=== PATIENT | male | born 1965 | race African-American/Black ===

== ENCOUNTER 2019-06-28 05:36 | Emergency (ER) | payer OTHER ==
[2019-06-28 05:40] VITALS: BP 168/114; PULSE 93
--- NOTE | 2019-06-28 06:26 | EDM.PDOC ---
ED HPI GENERAL MEDICAL PROBLEM - General Chief Complaint: Respiratory Problem Stated Complaint: CHEST PAIN Time Seen by Provider: 06/28/19 05:47 - History of Present Illness INITIAL COMMENTS - FREE TEXT/NARRATIVE: HPI 53-year-old morbidly obese male smoker with HTN and DM presents with poorly characterized new onset intermittent shortness of breath that appears to occur at rest and was without identifiable provoking or relieving factors. Recently flew to the area from [place]. No fevers or chills. M/S/F/SocHx notable for: please see HPI; remainder reviewed with patient and in chart. ROS: Negative constitutional, eye, cardiovascular, pulmonary, GI, , MSK, skin , neurologic, psychiatric, endocrine unless noted in the HPI. Exam Gen: Pleasant, non-toxic appearing, resting comfortably. HEENT: NC, AT, PEERL, EOMI. Resp: scattered faint expiratory wheezing, otherwise clear to auscultation bilaterally, normal work of breathing, no accessory muscle usage. Card: Regular rate and rhythm with no murmurs, rubs, or gallops, extremities warm and well perfused. GI: Non-tender to palpation throughout all quadrants, no focal tenderness at McBurney's point, negative Bronw's sign, non-distended, no rebound or guarding. : No suprapubic tenderness to palpation. MSK: No visible deformities, strength and tone without visually appreciable deficit. Skin: Normal color with no visible lesions. Neuro: alert and oriented 3, no facial asymmetry, vision and hearing WNL. Psych: Mood and affect appropriate. Labs / Imaging: EKG: SR 87 bpm, no ST segment elevations or depressions, no LBBB. No CO segment depressions. CXR: pending. BMP, CBC, d-dimer, troponin pending. MDM Previous chart, nursing note, labs, imaging, and vitals reviewed. A: 53-year-old morbidly obese male smoker with HTN and DM presents with poorly characterized new onset intermittent shortness of breath that appears to occur at rest and was without identifiable provoking or relieving factors. DDx: ACS, pericarditis, myocarditis, unstable angina, PE, CHF, reactive airway disease exacerbation, pneumonia, pleural effusion, pericardial effusion. Evaluation: patient without clear evidence of congestive heart failure or reactive airway disease exacerbation on exam. ECG without clear evidence of ischemia, pericarditis, myocarditis. Chest x-ray, laboratory studies, and repeat evaluation pending at time of patient care transferred to Dr. Moreno, the oncoming daytime physician. Impression: shortness of breath. - Related Data Allergies Allergy/AdvReac Type Severity Reaction Status Date / Time No Known Allergies Allergy Verified 06/28/19 05:37 Home Meds: Home Meds Cabergoline 0.5 mg PO DAILY 06/28/19 [History] Losartan/Hydrochlorothiazide [Losartan-HCTZ 50-12.5 MG] 1 each PO DAILY [History] atorvaSTATin [Lipitor] 20 mg PO DAILY 06/28/19 [History] metFORMIN HCl [Metformin HCl] 1,000 mg PO BIDMEALS 06/28/19 [History] Past Medical History HEENT History: Reports: None Cardiovascular History: Reports: High Cholesterol, Hypertension Respiratory History: Reports: None Gastrointestinal History: Reports: None Genitourinary History: Reports: None Neurological History: Reports: None Psychiatric History: Reports: None Endocrine/Metabolic History: Reports: Diabetes, Type II Hematologic History: Reports: None Immunologic History: Reports: None Oncologic (Cancer) History: Reports: None Dermatologic History: Reports: None - Infectious Disease History Infectious Disease History: Reports: Chicken Pox - Past Surgical History Other Musculoskeletal Surgeries/Procedures:: left elbow surgery Social & Family History - Family History Family Medical History: Noncontributory - Tobacco Use Smoking Status *Q: Current Every Day Smoker Years of Tobacco use: 20 Packs/Tins Daily: 1 - Recreational Drug Use Recreational Drug Use: No ED ROS GENERAL - Review of Systems Review Of Systems: See Below ED EXAM, GENERAL - Physical Exam Exam: See Below Course - Vital Signs Last Recorded V/S: Last Vital Signs Temp 36.1 C 06/28/19 05:38 Pulse 93 06/28/19 05:38 Resp 18 06/28/19 05:38 BP 168/114 H 06/28/19 05:38 Pulse Ox 92 L 06/28/19 05:38 - Orders/Labs/Meds Orders: Active Orders 24 hr Category Date Time Status EKG 12 Lead [EKG Documentation Completion] [RC] STAT Care 06/28/19 06:00 Active CXR [Chest 2V] [CR] Stat Exams 06/28/19 05:53 Ordered BMP [BASIC METABOLIC PANEL,BMP] [CHEM] Stat Lab 06/28/19 05:53 Ordered D Dimer [D-DIMER QUANTITATIVE] [COAG] Stat Lab 06/28/19 05:53 Ordered TROPONIN I [CHEM] Stat Lab 06/28/19 05:53 Ordered Labs: Laboratory Tests 06/28/19 Range/Units 06:11 WBC 10.57 (4.0-11.0) K/uL RBC 4.97 (4.50-5.90) M/uL Hgb 13.7 (13.0-17.0) g/dL Hct 42.9 (38.0-50.0) % MCV 86.3 (80.0-98.0) fL MCH 27.6 (27.0-32.0) pg MCHC 31.9 (31.0-37.0) g/dL RDW Std Deviation 49.0 (28.0-62.0) fl RDW Coeff of Radha 16 H (11.0-15.0) % Plt Count 259 (150-400) K/uL MPV 10.50 (7.40-12.00) fL Neut % (Auto) 64.1 (48.0-80.0) % Lymph % (Auto) 26.1 (16.0-40.0) % Kleberg % (Auto) 8.5 (0.0-15.0) % Eos % (Auto) 1.0 (0.0-7.0) % Baso % (Auto) 0.3 (0.0-1.5) % Neut # (Auto) 6.8 H (1.4-5.7) K/uL Lymph # (Auto) 2.8 H (0.6-2.4) K/uL Kleberg # (Auto) 0.9 H (0.0-0.8) K/uL Eos # (Auto) 0.1 (0.0-0.7) K/uL Baso # (Auto) 0.0 (0.0-0.1) K/uL Nucleated RBC % 0.0 /100WBC Nucleated RBCs # 0 K/uL Departure - Departure Time of Disposition: 06:25 Disposition: Still A Patient 30 Clinical Impression: Shortness of breath - Discharge Information Sepsis Event Note - Evaluation Sepsis Screening Result: No Definite Risk - Focused Exam Vital Signs: Vital Signs Temp Pulse Resp BP Pulse Ox 06/28/19 05:38 36.1 C 93 18 168/114 H 92 L Date Exam was Performed: 06/28/19 Time Exam was Performed: 06:25 - My Orders Last 24 Hours: My Active Orders 06/28/19 05:53 CXR [Chest 2V] [CR] Stat BMP [BASIC METABOLIC PANEL,BMP] [CHEM] Stat D Dimer [D-DIMER QUANTITATIVE] [COAG] Stat TROPONIN I [CHEM] Stat 06/28/19 06:00 EKG 12 Lead [EKG Documentation Completion] [RC] STAT - Assessment/Plan Last 24 Hours: My Active Orders 06/28/19 05:53 CXR [Chest 2V] [CR] Stat BMP [BASIC METABOLIC PANEL,BMP] [CHEM] Stat D Dimer [D-DIMER QUANTITATIVE] [COAG] Stat TROPONIN I [CHEM] Stat 06/28/19 06:00 EKG 12 Lead [EKG Documentation Completion] [RC] STAT
[2019-06-28 06:50] LABS: BLOOD UREA NITROGEN,BUN 15 mg/dL (7.0-18.0); CHLORIDE,CL 103 mmol/L (98-107); GLUCOSE RANDOM 119 mg/dL (74-106); POTASSIUM,K 3.9 mmol/L (3.5-5.1); SODIUM,NA 138 mmol/L (136-148)
--- NOTE | 2019-06-28 07:00 | CR ---
INDICATION: Shortness of breath. COMPARISON: None. TECHNIQUE: Two view chest. FINDINGS: Hazy opacity in the right lower lung laterally which obscures the right hemidiaphragm at the costophrenic angle. This could represent atelectasis, infiltrate, or a small effusion. There are also right perihilar opacities. No pneumothorax. Mild cardiomegaly. IMPRESSION: 1. Opacification of the lateral right lung base may represent atelectasis, infiltrate, or small effusion. 2. Mild cardiomegaly with right perihilar opacities. Dictated by Briseida Cancino MD @ Jun 28 2019 6:55AM Signed by Dr. Briseida Cancino @ Jun 28 2019 6:58AM
[2019-06-28] MEDS ORDERED: Azithromycin 250 MG Tab PO ONE (08:37)
[2019-06-28] MEDS ORDERED: Amoxicillin 500 MG Cap PO ONE (08:37)
--- NOTE | 2019-06-28 08:41 | EDM.PDOC ---
ED HPI GENERAL MEDICAL PROBLEM - General Chief Complaint: Respiratory Problem Stated Complaint: CHEST PAIN Time Seen by Provider: 06/28/19 05:47 - History of Present Illness INITIAL COMMENTS - FREE TEXT/NARRATIVE: HPI 53-year-old morbidly obese male smoker with HTN and DM presents with poorly characterized new onset intermittent shortness of breath that appears to occur at rest and was without identifiable provoking or relieving factors. Recently flew to the area from [place]. No fevers or chills. M/S/F/SocHx notable for: please see HPI; remainder reviewed with patient and in chart. ROS: Negative constitutional, eye, cardiovascular, pulmonary, GI, , MSK, skin , neurologic, psychiatric, endocrine unless noted in the HPI. Exam Gen: Pleasant, non-toxic appearing, resting comfortably. HEENT: NC, AT, PEERL, EOMI. Resp: scattered faint expiratory wheezing, otherwise clear to auscultation bilaterally, normal work of breathing, no accessory muscle usage. Card: Regular rate and rhythm with no murmurs, rubs, or gallops, extremities warm and well perfused. GI: Non-tender to palpation throughout all quadrants, no focal tenderness at McBurney's point, negative Brown's sign, non-distended, no rebound or guarding. : No suprapubic tenderness to palpation. MSK: No visible deformities, strength and tone without visually appreciable deficit. Skin: Normal color with no visible lesions. Neuro: alert and oriented 3, no facial asymmetry, vision and hearing WNL. Psych: Mood and affect appropriate. Labs / Imaging: EKG: SR 87 bpm, no ST segment elevations or depressions, no LBBB. No CO segment depressions. CXR: pending. BMP, CBC, d-dimer, troponin pending. MDM Previous chart, nursing note, labs, imaging, and vitals reviewed. A: 53-year-old morbidly obese male smoker with HTN and DM presents with poorly characterized new onset intermittent shortness of breath that appears to occur at rest and was without identifiable provoking or relieving factors. DDx: ACS, pericarditis, myocarditis, unstable angina, PE, CHF, reactive airway disease exacerbation, pneumonia, pleural effusion, pericardial effusion. Evaluation: patient without clear evidence of congestive heart failure or reactive airway disease exacerbation on exam. ECG without clear evidence of ischemia, pericarditis, myocarditis. Chest x-ray, laboratory studies, and repeat evaluation pending at time of patient care transferred to Dr. Moreno, the oncoming daytime physician. Impression: shortness of breath. - Related Data Allergies Allergy/AdvReac Type Severity Reaction Status Date / Time No Known Allergies Allergy Verified 06/28/19 05:37 Home Meds: Home Meds Cabergoline 0.5 mg PO DAILY 06/28/19 [History] Losartan/Hydrochlorothiazide [Losartan-HCTZ 50-12.5 MG] 1 each PO DAILY [History] atorvaSTATin [Lipitor] 20 mg PO DAILY 06/28/19 [History] metFORMIN HCl [Metformin HCl] 1,000 mg PO BIDMEALS 06/28/19 [History] Past Medical History HEENT History: Reports: None Cardiovascular History: Reports: High Cholesterol, Hypertension Respiratory History: Reports: None Gastrointestinal History: Reports: None Genitourinary History: Reports: None Neurological History: Reports: None Psychiatric History: Reports: None Endocrine/Metabolic History: Reports: Diabetes, Type II Hematologic History: Reports: None Immunologic History: Reports: None Oncologic (Cancer) History: Reports: None Dermatologic History: Reports: None - Infectious Disease History Infectious Disease History: Reports: Chicken Pox - Past Surgical History Other Musculoskeletal Surgeries/Procedures:: left elbow surgery Social & Family History - Family History Family Medical History: Noncontributory - Tobacco Use Smoking Status *Q: Current Every Day Smoker Years of Tobacco use: 20 Packs/Tins Daily: 1 - Recreational Drug Use Recreational Drug Use: No ED ROS GENERAL - Review of Systems Review Of Systems: See Below ED EXAM, GENERAL - Physical Exam Exam: See Below Free Text/Narrative:: HPI 53-year-old morbidly obese male smoker with HTN and DM presents with poorly characterized new onset intermittent shortness of breath that appears to occur at rest and was without identifiable provoking or relieving factors. Recently flew to the area from [place]. No fevers or chills. M/S/F/SocHx notable for: please see HPI; remainder reviewed with patient and in chart. ROS: Negative constitutional, eye, cardiovascular, pulmonary, GI, , MSK, skin , neurologic, psychiatric, endocrine unless noted in the HPI. Exam Gen: Pleasant, non-toxic appearing, resting comfortably. HEENT: NC, AT, PEERL, EOMI. Resp: scattered faint expiratory wheezing, otherwise clear to auscultation bilaterally, normal work of breathing, no accessory muscle usage. Card: Regular rate and rhythm with no murmurs, rubs, or gallops, extremities warm and well perfused. GI: Non-tender to palpation throughout all quadrants, no focal tenderness at McBurney's point, negative Brown's sign, non-distended, no rebound or guarding. : No suprapubic tenderness to palpation. MSK: No visible deformities, strength and tone without visually appreciable deficit. Skin: Normal color with no visible lesions. Neuro: alert and oriented 3, no facial asymmetry, vision and hearing WNL. Psych: Mood and affect appropriate. Labs / Imaging: EKG: SR 87 bpm, no ST segment elevations or depressions, no LBBB. No CO segment depressions. CXR: pending. BMP, CBC, d-dimer, troponin pending. MDM Previous chart, nursing note, labs, imaging, and vitals reviewed. A: 53-year-old morbidly obese male smoker with HTN and DM presents with poorly characterized new onset intermittent shortness of breath that appears to occur at rest and was without identifiable provoking or relieving factors. DDx: ACS, pericarditis, myocarditis, unstable angina, PE, CHF, reactive airway disease exacerbation, pneumonia, pleural effusion, pericardial effusion. Evaluation: patient without clear evidence of congestive heart failure or reactive airway disease exacerbation on exam. ECG without clear evidence of ischemia, pericarditis, myocarditis. Chest x-ray, laboratory studies, and repeat evaluation pending at time of patient care transferred to Dr. Moreno, the oncoming daytime physician. Impression: shortness of breath. Course - Vital Signs Last Recorded V/S: Last Vital Signs Temp 36.1 C 06/28/19 05:38 Pulse 93 06/28/19 05:38 Resp 18 06/28/19 05:38 BP 168/114 H 06/28/19 05:38 Pulse Ox 92 L 06/28/19 05:38 - Orders/Labs/Meds Orders: Active Orders 24 hr Category Date Time Status EKG 12 Lead [EKG Documentation Completion] [RC] STAT Care 06/28/19 06:00 Active Labs: Laboratory Tests 06/28/19 06/28/19 06/28/19 Range/Units 06:11 06:11 06:11 WBC 10.57 (4.0-11.0) K/uL RBC 4.97 (4.50-5.90) M/uL Hgb 13.7 (13.0-17.0) g/dL Hct 42.9 (38.0-50.0) % MCV 86.3 (80.0-98.0) fL MCH 27.6 (27.0-32.0) pg MCHC 31.9 (31.0-37.0) g/dL RDW Std Deviation 49.0 (28.0-62.0) fl RDW Coeff of Radha 16 H (11.0-15.0) % Plt Count 259 (150-400) K/uL MPV 10.50 (7.40-12.00) fL Neut % (Auto) 64.1 (48.0-80.0) % Lymph % (Auto) 26.1 (16.0-40.0) % Norton % (Auto) 8.5 (0.0-15.0) % Eos % (Auto) 1.0 (0.0-7.0) % Baso % (Auto) 0.3 (0.0-1.5) % Neut # (Auto) 6.8 H (1.4-5.7) K/uL Lymph # (Auto) 2.8 H (0.6-2.4) K/uL Norton # (Auto) 0.9 H (0.0-0.8) K/uL Eos # (Auto) 0.1 (0.0-0.7) K/uL Baso # (Auto) 0.0 (0.0-0.1) K/uL Nucleated RBC % 0.0 /100WBC Nucleated RBCs # 0 K/uL D-Dimer, Quantitative 0.45 (0.0-0.50) mg/L FEU Sodium 138 (136-148) mmol/L Potassium 3.9 (3.5-5.1) mmol/L Chloride 103 (98-107) mmol/L Carbon Dioxide 26.0 (21.0-32.0) mmol/L BUN 15 (7.0-18.0) mg/dL Creatinine 1.2 (0.8-1.3) mg/dL Est Cr Clr Drug Dosing 87.40 mL/min Estimated GFR (MDRD) > 60.0 ml/min Glucose 119 H (74-106) mg/dL Calcium 8.9 (8.5-10.1) mg/dL Troponin I < 0.050 (0.000-0.056) ng/mL Meds: Medications Discontinued Medications Generic Name Dose Route Start Last Admin Trade Name Freq PRN Reason Stop Dose Admin Amoxicillin 500 mg 06/28/19 08:37 Amoxil PO 06/28/19 08:38 ONETIME ONE Azithromycin 500 mg 06/28/19 08:37 Zithromax PO 06/28/19 08:38 Q24H ONE Departure - Departure Time of Disposition: 08:41 Disposition: Home, Self-Care 01 Clinical Impression: Shortness of breath, Pneumonia - Discharge Information Instructions: Chronic Obstructive Pulmonary Disease Exacerbation, [id number] , Steps to Quit Smoking, [id number] Referrals: PCP,Not In Area [Primary Care Provider] - Forms: ED Department Discharge Additional Instructions: The following information is given to patients seen in the emergency department who are being discharged to home. This information is to outline your options for follow-up care. We provide all patients seen in our emergency department with a follow-up referral. The need for follow-up, as well as the timing and circumstances, are variable depending upon the specifics of your emergency department visit. If you don't have a primary care physician on staff, we will provide you with a referral. We always advise you to contact your personal physician following an emergency department visit to inform them of the circumstance of the visit and for follow-up with them and/or the need for any referrals to a consulting specialist. The emergency department will also refer you to a specialist when appropriate. This referral assures that you have the opportunity for follow-up care with a specialist. All of these measure are taken in an effort to provide you with optimal care, which includes your follow-up. Under all circumstances we always encourage you to contact your private physician who remains a resource for coordinating your care. When calling for follow-up care, please make the office aware that this follow-up is from your recent emergency room visit. If for any reason you are refused follow-up, please contact the [facility] Emergency Department at and asked to speak to the emergency department charge nurse. Sepsis Event Note - Evaluation Sepsis Screening Result: No Definite Risk - Focused Exam Vital Signs: Vital Signs Temp Pulse Resp BP Pulse Ox 06/28/19 05:38 36.1 C 93 18 168/114 H 92 L Date Exam was Performed: 06/28/19 Time Exam was Performed: 08:39 - Assessment/Plan Assessment:: Patient is a 53-year-old male presenting with shortness of breath signed out from overnight team. Patient's labs were reviewed with no acute abnormalities. Patient's chest x-ray demonstrates a possible pneumonia versus small effusion. Patient has no respiratory symptoms this time. After further questioning, he states that the symptoms been intermittent for the past several months he does not have any chest pain with the symptoms. ACS is considered however is not exertional without chest pain makes it less likely. Troponin was also negative. Pulmonary embolism was also considered however within the context of negative d-dimer this can be excluded. Given his longstanding smoking history and initial O2 saturation in the low to mid 90s I think that COPD could also be potentially part of the diagnosis with exacerbation and pneumonia complicating the picture. Patient given steps to quit smoking as well as will be covered with antibiotics. In addition, patient will be prescribed an albuterol inhaler for symptom flare. Patient given strict return precautions all questions addressed and answered. Patient agrees with plan
== END 2019-06-28 09:00 | disposition home or self-care (01) ==
LOC: MERGE 05:36 → MW.ED 05:36
DX: J18.9 Pneumonia, unspecified organism (principal); I10 Essential (primary) hypertension; E11.9 Type 2 diabetes mellitus without complications; E66.01 Morbid (severe) obesity due to excess calories; E78.00 Pure hypercholesterolemia, unspecified; F17.210 Nicotine dependence, cigarettes, uncomplicated; Z68.41 Body mass index [BMI] 40.0-44.9, adult; Z79.84 Long term (current) use of oral hypoglycemic drugs; Z79.899 Other long term (current) drug therapy
CPT/HCPCS: 36415; 71046; 80048; 84484; 85025; 85379; 93005; 99285; A9270; 99284

== ENCOUNTER 2019-09-27 08:03 | Emergency (ER) | payer OTHER ==
[2019-09-27 09:24] LABS: BLOOD UREA NITROGEN,BUN 11 mg/dL (7.0-18.0); CARBON DIOXIDE,CO2 27.4 mmol/L (21.0-32.0); CHLORIDE,CL 106 mmol/L (98-107); GLUCOSE RANDOM 165 mg/dL (74-106); POTASSIUM,K 3.9 mmol/L (3.5-5.1); SODIUM,NA 142 mmol/L (136-148)
--- NOTE | 2019-09-27 09:53 | CR ---
Chest: 2 views of the chest were obtained. Comparison: Prior chest x-ray of 06/28/19. Elevated right hemidiaphragm is seen. Stable pleural thickening or pleural effusion within the right base. Mild scarring is seen within the right base. Central lung markings are increased which appear stable. Heart size and mediastinum are normal. Bony structures are within normal limits for the patient's age. Impression: 1. Findings as noted above. 2. No significant change from previous chest x-ray is seen. 3. Nothing acute is seen from previous study. Diagnostic code #2 This report was dictated in MDT
--- NOTE | 2019-09-27 10:39 | EDM.PDOC ---
[facility] GENERAL MEDICAL PROBLEM - General Chief Complaint: Respiratory Problem Stated Complaint: SOB Time Seen by Provider: 09/27/19 08:13 - History of Present Illness INITIAL COMMENTS - FREE TEXT/NARRATIVE: HPI 53-year-old morbidly obese male with HTN presents for evaluation of gradual onset shortness breath and concern that he has water on his lungs. Patient reports that he was seen several months ago, diagnosed with water on his lungs , given a diuretic, had interval improvement in symptoms but did not follow up with primary care or any other outpatient physicians. Patient has recurrent symptoms. Patient denies calf tenderness, swelling, but notes a history of a provoked DVT while hospitalized several years ago for pneumonia. No fevers or chills. No identifiable provoking or relieving factors. M/S/F/SocHx notable for: please see HPI; remainder reviewed with patient and in chart. ROS: Negative constitutional, eye, cardiovascular, pulmonary, GI, , MSK, skin , neurologic, psychiatric, endocrine unless noted in the HPI. Exam HR 108, RR 20, BP 198/106, T 36.4C, SaO2 94% on room air. Gen: Pleasant, non-toxic appearing, resting comfortably. HEENT: NC, AT, PEERL, EOMI, trachea midline. Resp: Clear to auscultation bilaterally, normal work of breathing. Card: RRR with no M/R/G, no crackles in lung bases, no pedal edema, no JVD appreciated. GI: NT/ND Vascular: Both ankles, calves, and thighs of equal size, no calf tenderness to palpation bilaterally. MSK: No chest wall TTP. No visible deformities, strength and tone WNL. Skin: Normal color with no visible lesions. Neuro: alert and oriented 3, no facial asymmetry, vision and hearing WNL. Psych: Mood and affect appropriate. Labs / Imaging (pertinent): WBC 9.2, HB 13.4, d-dimer 0.30, sodium 142, potassium 3.9, troponin <0.050, BNP 259 EKG: SR at 99 bpm, no WV segment depressions, no new ST segment changes, new LBBB, or T-wave changes that would suggest acute ischemia. CXR: No acute cardiopulmonary disease process. No focal infiltrate, cardiomegaly , rib fractures, or mediastinal widening, lung markings extend to the periphery bilaterally and there are no deep sulci. MDM Previous chart, nursing note, and vitals reviewed. A: 53-year-old morbidly obese male with HTN presents for evaluation of gradual onset shortness breath and concern that he has water on his lungs. DDx: pneumonia, reactive airway disease / COPD / Asthma, bronchitis, pneumothorax, anxiety, PE, CHF, pleural effusion, pericardial effusion, ACS. Evaluation: * Pneumonia - as the CXR is without focal infiltrate and the patient is afebrile and without significant sputum production, doubt pneumonia. * Reactive airway disease / COPD / Asthma - patient with good air movement and an absence of wheezing. * Bronchitis - doubt given the lack of productive cough or systemic symptoms. * Pneumothorax - no evidence by CXR. * Anxiety - patient clinically without evidence of appreciable anxiety on exam. * PE Wells' (Signs & Sx of DVT - 0, PE is #1 or equally likelihood - 0, HR > 100 - 1.5, immobilization of >=3 days or surgery in last 28 days - 0, prior DVT or PE - 1.5, hemoptysis - 0, malignancy w/ tx in last 6 mo or palliative - 0) 3 ; as such the patients negative d-dimer is appropriate for PE rule out/risk stratification. * CHF - no evidence by auscultation, CXR, and absence of pedal edema. * Pleural effusion - CXR without evidence of effusions. * Pericardial effusion - doubt pericardial effusion given an alternate diagnosis , the lack of cardiomegaly on CXR and normal heart sounds. * ACS - doubt ACS given a non-ischemic EKG and a negative troponin greater than six hours from maximal symptom onset. ED Course: patient asymptomatic, no hypoxemia. Disposition: discharge with PCP follow-up recommended. Impression: shortness of breath. - Related Data Allergies Allergy/AdvReac Type Severity Reaction Status Date / Time No Known Allergies Allergy Verified 09/27/19 08:20 Home Meds: Home Meds Albuterol [Proventil HFA] 2 puff INH Q4H PRN #1 inhaler 06/28/19 [Rx] Amoxicillin 500 mg PO BID 7 Days #14 capsule 06/28/19 [Rx] Azithromycin 250 mg PO DAILY 3 Days #3 tablet 06/28/19 [Rx] Cabergoline 0.5 mg PO DAILY 06/28/19 [History] Losartan/Hydrochlorothiazide [Losartan-HCTZ 50-12.5 MG] 1 each PO DAILY [History] atorvaSTATin [Lipitor] 20 mg PO DAILY 06/28/19 [History] metFORMIN HCl [Metformin HCl] 1,000 mg PO BIDMEALS 06/28/19 [History] Past Medical History HEENT History: Reports: None Cardiovascular History: Reports: High Cholesterol, Hypertension Respiratory History: Reports: None Gastrointestinal History: Reports: None Genitourinary History: Reports: None Neurological History: Reports: None Psychiatric History: Reports: None Endocrine/Metabolic History: Reports: Diabetes, Type II Hematologic History: Reports: None Immunologic History: Reports: None Oncologic (Cancer) History: Reports: None Dermatologic History: Reports: None - Infectious Disease History Infectious Disease History: Reports: Chicken Pox - Past Surgical History Other Musculoskeletal Surgeries/Procedures:: left elbow surgery Social & Family History - Family History Family Medical History: Noncontributory - Tobacco Use Smoking Status *Q: Current Every Day Smoker Years of Tobacco use: 20 Packs/Tins Daily: 0.5 - Recreational Drug Use Recreational Drug Use: No ED ROS GENERAL - Review of Systems Review Of Systems: See Below ED EXAM, GENERAL - Physical Exam Exam: See Below Course - Vital Signs Last Recorded V/S: Last Vital Signs Temp 36.4 C 09/27/19 08:05 Pulse 108 H 09/27/19 08:05 Resp 20 09/27/19 08:05 BP 198/106 H 09/27/19 08:05 Pulse Ox 94 L 09/27/19 08:05 - Orders/Labs/Meds Orders: Active Orders 24 hr Category Date Time Status EKG 12 Lead [EKG Documentation Completion] [RC] ROUTINE Care 09/27/19 09:10 Active Labs: Laboratory Tests 09/27/19 09/27/19 09/27/19 Range/Units 08:50 08:50 08:50 WBC 9.16 (4.0-11.0) K/uL RBC 4.89 (4.50-5.90) M/uL Hgb 13.4 (13.0-17.0) g/dL Hct 43.1 (38.0-50.0) % MCV 88.1 (80.0-98.0) fL MCH 27.4 (27.0-32.0) pg MCHC 31.1 (31.0-37.0) g/dL RDW Std Deviation 52.0 (28.0-62.0) fl RDW Coeff of Radha 16 H (11.0-15.0) % Plt Count 219 (150-400) K/uL MPV 10.50 (7.40-12.00) fL Neut % (Auto) 71.4 (48.0-80.0) % Lymph % (Auto) 20.4 (16.0-40.0) % Lamb % (Auto) 7.6 (0.0-15.0) % Eos % (Auto) 0.4 (0.0-7.0) % Baso % (Auto) 0.2 (0.0-1.5) % Neut # (Auto) 6.5 H (1.4-5.7) K/uL Lymph # (Auto) 1.9 (0.6-2.4) K/uL Lamb # (Auto) 0.7 (0.0-0.8) K/uL Eos # (Auto) 0.0 (0.0-0.7) K/uL Baso # (Auto) 0.0 (0.0-0.1) K/uL Nucleated RBC % 0.0 /100WBC Nucleated RBCs # 0 K/uL D-Dimer, Quantitative 0.30 (0.0-0.50) mg/L FEU Sodium 142 (136-148) mmol/L Potassium 3.9 (3.5-5.1) mmol/L Chloride 106 (98-107) mmol/L Carbon Dioxide 27.4 (21.0-32.0) mmol/L BUN 11 (7.0-18.0) mg/dL Creatinine 1.1 (0.8-1.3) mg/dL Est Cr Clr Drug Dosing 95.35 mL/min Estimated GFR (MDRD) > 60.0 ml/min Glucose 165 H (74-106) mg/dL Calcium 8.5 (8.5-10.1) mg/dL Troponin I < 0.050 (0.000-0.056) ng/mL B-Natriuretic Peptide (<100) PG/ML 09/27/19 Range/Units 08:50 WBC (4.0-11.0) K/uL RBC (4.50-5.90) M/uL Hgb (13.0-17.0) g/dL Hct (38.0-50.0) % MCV (80.0-98.0) fL MCH (27.0-32.0) pg MCHC (31.0-37.0) g/dL RDW Std Deviation (28.0-62.0) fl RDW Coeff of Radha (11.0-15.0) % Plt Count (150-400) K/uL MPV (7.40-12.00) fL Neut % (Auto) (48.0-80.0) % Lymph % (Auto) (16.0-40.0) % Lamb % (Auto) (0.0-15.0) % Eos % (Auto) (0.0-7.0) % Baso % (Auto) (0.0-1.5) % Neut # (Auto) (1.4-5.7) K/uL Lymph # (Auto) (0.6-2.4) K/uL Lamb # (Auto) (0.0-0.8) K/uL Eos # (Auto) (0.0-0.7) K/uL Baso # (Auto) (0.0-0.1) K/uL Nucleated RBC % /100WBC Nucleated RBCs # K/uL D-Dimer, Quantitative (0.0-0.50) mg/L FEU Sodium (136-148) mmol/L Potassium (3.5-5.1) mmol/L Chloride (98-107) mmol/L Carbon Dioxide (21.0-32.0) mmol/L BUN (7.0-18.0) mg/dL Creatinine (0.8-1.3) mg/dL Est Cr Clr Drug Dosing mL/min Estimated GFR (MDRD) ml/min Glucose (74-106) mg/dL Calcium (8.5-10.1) mg/dL Troponin I (0.000-0.056) ng/mL B-Natriuretic Peptide 259 H (<100) PG/ML Departure - Departure Time of Disposition: 10:38 Disposition: Admitted As Inpatient 66 Clinical Impression: Shortness of breath - Discharge Information Referrals: PCP,Unobtain [Primary Care Provider] - Additional Instructions: You were in seen in the [facility] Emergency Department for evaluation of shortness of breath, the time of your evaluation no significant abnormalities were noted. Please read and follow all of the instructions below. Please follow up with your primary care physician within 24 hours repeat evaluation further care as needed. When calling for follow-up care, please make the office aware that this follow-up is from your recent emergency room visit. If for any reason you are refused follow-up, please contact the [facility] Emergency Department at and asked to speak to the emergency department charge nurse. Your care today was limited to identifying and treating emergent medical problems only. Many people have subtle differences in their test results that require follow up with their outpatient physician(s) to correctly determine if this represents a normal variation or concerning abnormality with respect to your specific health. The care given to you today was limited to identifying and treating emergent medical problems - you need to request a copy of all of your medical records from today's visit and follow up with your outpatient physician(s) to review both today's visit and your overall health. If you have any new symptoms or if you are at all concerned about your health please return immediately to the emergency department. Shortness of Breath, Adult Shortness of breath is when a person has trouble breathing enough air, or when a person feels like she or he is having trouble breathing in enough air. Shortness of breath could be a sign of medical problem. Follow these instructions at home: Pay attention to any changes in your symptoms. Take these actions to help with your condition: Do not smoke. Smoking is a common cause of shortness of breath. If you smoke and you need help quitting, ask your health care provider. Avoid things that can irritate your airways, such as: o Mold. o Dust. o Air pollution. o Chemical fumes. Things that can cause allergy symptoms (allergens), if you have allergies. Keep your living space clean and free of mold and dust. Rest as needed. Slowly return to your usual activities. Take zort-rdl-banxnqy and prescription medicines, including oxygen and inhaled medicines, only as told by your health care provider. Keep all follow-up visits as told by your health care provider. This is important. Contact a health care provider if: Your condition does not improve as soon as expected. You have a hard time doing your normal activities, even after you rest. You have new symptoms. Get help right away if: Your shortness of breath gets worse. You have shortness of breath when you are resting. You feel light-headed or you faint. You have a cough that is not controlled with medicines. You cough up blood. You have pain with breathing. You have pain in your chest, arms, shoulders, or abdomen. You have a fever. You cannot walk upstairs or exercise the way that you normally do. High Blood Pressure (Hypertension) When you were in the emergency department you had an abnormally high blood pressure. High blood pressure can be without symptoms. However high blood pressure can lead to many medical problems including kidney disease, strokes, and heart attacks. Your blood pressure may have been elevated due to pain or the stress of being in the emergency department, however half of people with an elevated blood pressure in the emergency department have superintendent marine oil terminal problems with high blood pressure. Please see your primary care physician in 2-3 days for a repeat check of your blood pressure. This may help prevent many health serious problems in the future. Please return to the emergency department if you develop any of the following: chest pain, shortness of breath, new or severe headache, changes in vision or hearing, weakness, or if you are otherwise concerned about your health. Prescriptions: If you are uninsured or have financial difficulties with filling your prescription(s), you may consider using a free pharmacy discount service such as [employer] ([employer]) or [employer] ([employer]). These services allow you to search for a medication on your phone (or computer) and obtain a coupon that usually has a significant discount from the list resendez at a pharmacy. Your physician as well as [facility] does not have a financial relationship with either of these services. You may also wish to speak with your physician to determine if lower cost prescriptions are possible. Obtaining primary care: 1. [facility] provides pediatrics (children), family medicine (children, adults, and some obstetrical care), and internal medicine (adults). Further specialty care is also available. Same day appointments are available. They may be contacted at [phone] and are open Friday through Friday 8 AM to [address] [facility] are located at [address], [place] [address]. 2. [facility] offers family medicine, internal medicine, womens health, and further specialty care. [facility] may be contacted at [phone]. [facility] is located at [address] [place], [address]. 3. If you have health insurance, please also contact your insurer for a list of accepting providers under your policy, you may contact these providers for further health care. Occupational health: Work related injuries may consider following up with [facility], . Occupational health services are located at [address] [place] [address] and are open Friday through Friday from 7: 30 am to 5:00 pm. Obstetrical and Gynecological Care: [facility], , Friday through Friday 8 AM to [address] [place] [address]. Eyecare: If you have an eye injury you should follow up with your bulbs farmworker or with [facility], at [phone] or [phone] , they are located at [address] [place] [address]. Dental Care Horace Wheeler DDS. [address] [place], [place]. Ph. [phone] Brian Wheeler DDS MS. [address] [facility] [address], [place], [place]. Ph. [phone] Mor Sexton DDS. [address] [place]. Ph. [phone] Claudio Sarmiento DDS. [address] [facility] 4 [place], [place]. Ph. [phone] Heath Ballesteros DDS PC. [address] [place], [place]. Ph. Patria Brown DDS. [address] [facility]. Ph. [phone] [facility]. [address] [place], [place]. Ph. [phone] [facility]. [address] [place], [place], [place]. Ph. [phone] [facility] [address] [place] [phone]. Ph. [facility]. [address] [place] [address] [address] [place]. Ph. [phone] [facility]. [address], [place], [place]. Ph. Sepsis Event Note - Evaluation Sepsis Screening Result: No Definite Risk - Focused Exam Vital Signs: Vital Signs Temp Pulse Resp BP Pulse Ox 09/27/19 08:05 36.4 C 108 H 20 198/106 H 94 L Date Exam was Performed: 09/27/19 Time Exam was Performed: 10:38 - My Orders Last 24 Hours: My Active Orders 09/27/19 09:10 EKG 12 Lead [EKG Documentation Completion] [RC] ROUTINE - Assessment/Plan Last 24 Hours: My Active Orders 09/27/19 09:10 EKG 12 Lead [EKG Documentation Completion] [RC] ROUTINE
[2019-09-27 11:02] VITALS: BP 170/109; PULSE 92
== END 2019-09-27 10:56 | disposition critical access hospital (66) ==
LOC: MW.ED 08:03
DX: R06.02 Shortness of breath (principal); E78.00 Pure hypercholesterolemia, unspecified; I10 Essential (primary) hypertension; E11.9 Type 2 diabetes mellitus without complications; E66.01 Morbid (severe) obesity due to excess calories; Z68.33 Body mass index [BMI] 33.0-33.9, adult; F17.210 Nicotine dependence, cigarettes, uncomplicated; Z79.84 Long term (current) use of oral hypoglycemic drugs; Z79.899 Other long term (current) drug therapy
CPT/HCPCS: 36415; 71046; 71046-26; 80048; 83880; 84484; 85025; 85379; 93005; 99283; 99285-25